=== PATIENT | male | born 1995 | race Caucasian/White ===

== ENCOUNTER 2016-12-22 12:07 | Emergency (ER) | payer OTHER ==
[~2016-12-22] VITALS: Ht 172.7 cm; Wt 68.5 kg
[2016-12-22 12:19] VITALS: Ht 172.7 cm; Wt 68.5 kg
[2016-12-22 14:00] LABS: ADD UMIC NO; UR BILIRUBIN (Dip) NEGATIVE (NEGATIVE); UR BLOOD (Dip) NEGATIVE (NEGATIVE); UR CLARITY CLEAR (CLEAR); UR COLOR YELLOW (YELLOW); UR GLUCOSE (Dip) NEGATIVE (NEGATIVE); UR KETONES (Dip) NEGATIVE (NEGATIVE); UR LEUKOCYTE ESTERASE (Dip) NEGATIVE (NEGATIVE); UR NITRITE (Dip) NEGATIVE (NEGATIVE); UR TOTAL PROTEIN (Dip) NEGATIVE (NEGATIVE); UR UROBILINOGEN (Dip) 0.2 E.U./dL (0.1-1.0)
[2016-12-22 14:21] LABS: ADD SCAN DIFF NO
[2016-12-22 14:27] LABS: BASOPHILS % 0.5 % (0.0-2.0); EOSINOPHILS # 0.1 10^3/ul (0.0-0.5); EOSINOPHILS % 2.1 % (0.0-7.0); HEMATOCRIT 44.9 % (42.0-52.0); HEMOGLOBIN 15.5 g/dl (14.0-18.0); LYMPHOCYTES # 1.5 10^3/ul (0.8-2.9); MEAN CORPUSCULAR HEMOGLOBIN 31.1 pg (29.0-33.0); MEAN CORPUSCULAR HGB CONC 34.5 g/dl (32.0-37.0); MEAN CORPUSCULAR VOLUME 90.2 fl (72.0-104.0); MEAN PLATELET VOLUME 9.5 fl (7.4-10.4); MONOCYTE # 0.5 10^3/ul (0.3-0.9); MONOCYTES % 7.1 % (0.0-13.0); NEUTROPHIL # 4.5 10^3/ul (1.6-7.5); NEUTROPHILS % 68.1 % (30.0-74.0); PLATELET COUNT 276 10^3/UL (140-415); RED BLOOD COUNT 4.98 10^6/ul (4.70-6.10); RED CELL DISTRIBUTION WIDTH 12.6 % (11.5-14.5); WHITE BLOOD COUNT 6.6 10^3/ul (4.8-10.8)
[2016-12-22 14:44] LABS: ALBUMIN 5.4 g/dl (3.3-4.9); ALBUMIN/GLOBULIN RATIO 2.07; BILIRUBIN,INDIRECT 0.6 mg/dl (0-1.1); BILIRUBIN,TOTAL 0.6 mg/dl (0.2-1.3); CALCIUM 9.9 mg/dl (8.4-10.2); CREATININE 1.07 mg/dl (0.61-1.24); POTASSIUM 4.3 mmol/L (3.5-5.1)
--- NOTE | 2016-12-22 15:47 | RADRPT ---
PROCEDURE: CT Abdomen and Pelvis without contrast. CLINICAL INDICATION: Right lower quadrant and groin pain TECHNIQUE: CT scan of the abdomen and pelvis without contrast was performed on a multidetector hig h-resolution CT scanner. The patient was scanned without intravenous contrast. Coronal and sagittal reformatted images were obtained from the axial source images. Images were reviewed on a high-resol [employer] PACS workstation. The total exam CTDI equals 7.31 mGy and the total exam DLP equals 396.02 mGy -cm. One or more of the following dose reduction techniques were used: Automated exposure control. Adjustment of the mA and/or kV according to patient size. Use of iterative reconstruction technique. COMPARISON: None FINDINGS: CT abdomen: The lung bases are clear. The heart size is normal, without pericardial thickening or effusion. Th e liver is normal in size and density without focal mass or intrahepatic biliary dilatation. The sp tammy is normal in size and homogeneous in density. The stomach is partially collapsed, but is gross ly unremarkable. The pancreas as visualized is normal. The gallbladder is unremarkable. There is n o evidence for biliary dilatation. The adrenal glands are symmetric and normal. The kidneys are sy mmetrically unremarkable as well. No renal calculus or obstructive uropathy or mass lesion is seen. The aorta is of normal caliber. There is no retroperitoneal lymphadenopathy. The mario hepatis kaya on is clear. The bowel and mesentery, as visualized, are equally unremarkable. CT pelvis: The small bowel loops situated within the pelvis are unremarkable. There is a normal appendix. The pelvic organs are normal. The pelvic sidewalls and inguinal regions are clear. The sigmoid colon and rectum are unremarkable. No mass, lymphadenopathy, or free fluid is seen. No acute inflammatio n is seen. No osteolytic or osteoblastic lesion is detected. IMPRESSION: 1. No mass, lymphadenopathy, or focal acute inflammatory process is identified. 2. Normal appendix. 3. No urolithiasis. No hydronephrosis. 4. No inguinal hernia. RPTAT: BB .Rosette Urbina MD, MD Date Time Electronically viewed and signed by .Rosette Urbina MD, on 12/22/2016 15:47 .O/
--- NOTE | 2016-12-22 17:00 | RADRPT ---
PROCEDURE: US Scrotum. CLINICAL INDICATION: Scrotal pain. TECHNIQUE: Multiple sonographic images of the scrotal region were obtained utilizing a linear arra y transducer with grayscale and color-flow and a Doppler imaging. The images were reviewed on a high -resolution PACS workstation. COMPARISON: No. FINDINGS: The right testicle is well visualized and has a normal echotexture. No focal areas of abnormal echog enicity are visualized. The right testicle measures measures 4.4 x 2.4 x 3.3 cm. There is normal col or-flow. The right epididymis is visualized and unremarkable in appearance. There is normal color-fl ow. The left testicle is well visualized and has a normal echotexture. No focal areas abnormal echogenic ity are visualized. The left testicle as normal parenchyma and measures 3.6 x 1.7 x 3.1 cm. There is normal color-flow. The left epididymis is visualized and is unremarkable in appearance. There is no rmal color-flow. The scrotal wall is unremarkable. There is no evidence of a hydrocele or varicocele. No swelling o r edema is seen. No other incidental abnormality is identified. IMPRESSION: 1. Normal testicular sonogram. Physician Gary Date Time Electronically viewed and signed by Physician Gary on 12/22/2016 17:00 ALLYSON/
[2016-12-22] MEDS ORDERED: ACET500C5 PO (17:12)
--- NOTE | 2016-12-22 17:36 | ERD ---
ER Documentation Chief Complaint Date/Time DATE: 12/22/16 TIME: 17:33 Chief Complaint right lower abdominal pain this morning HPI 21-year-old's male patient with no significant past medical history presents to the ED complaining of right lower quadrant abdominal pain that started intermittently in the last few months and right testicular pain that started this morning. Describes the pain as sharp and rates it a 8 out of 10. Reports that the pain does not radiate and is localized. States that the scrotal pain and abdominal pain is separate. Denies any nausea, vomiting, diarrhea. Reports that he has normal daily bowel movements. Denies any chest pain, wheezing, shortness of breath. ROS All systems reviewed and are negative except as per history of present illness. Medications Home Meds Active Scripts Acetaminophen* (Tylophen*) 500 Mg Capsule, 1 CAP PO Q6H Y for PAIN AND OR ELEVATED TEMP, #20 CAP Prov:SIN LEDESMA PA-C 12/22/16 Allergies Allergies: Coded Allergies: No Known Allergy (Unverified , 12/22/16) PMhx/Soc Medical and Surgical Hx: pt denies Medical Hx, pt denies Surgical Hx Hx Alcohol Use: No Hx Substance Use: No Hx Tobacco Use: No Smoking Status: Never smoker Physical Exam Vitals Vital Signs Date Time Temp Pulse Resp B/P Pulse Ox O2 Delivery O2 Flow Rate FiO2 12/22/16 12:19 98.3 70 18 131/58 97 Physical Exam Const: [id number], well-nourished. In no acute distress. Head: Atraumatic, normocephalic Eyes: Normal Conjunctiva without injection. No purulent discharge. ENT: Normal external ear, nose. Moist oropharynx without tonsillar exudates. Non -erythematous pharynx. Uvula midline. No drooling. No trismus. Neck: No cervical midline tenderness. Full range of motion. No meningismus. No cervical lymphadenopathy. No JVD. Resp: Clear to auscultation bilaterally. No wheezing, rhonchi, rales, or crackles. No accessory muscle use. No retractions. Cardio: Regular rate and rhythm. No murmurs, rubs or gallops. Abd: Soft, right lower quadrant tenderness, non distended. Normal bowel sounds. No palpable masses. No rebound tenderness. No guarding. Negative McBurney's point. Negative psoas sign. Negative obturator sign. Skin: No petechiae or rashes Back: No midline tenderness. No CVA tenderness. Ext: No cyanosis, or edema. Neur: Awake and alert. Normal gait. Normal coordination. Psych: Normal Mood and Affect Result Diagram: 12/22/16 1415 12/22/16 1415 Results 24 hrs Laboratory Tests Test 12/22/16 13:44 12/22/16 14:15 Urine Color YELLOW Urine Clarity CLEAR Urine pH 6.5 Urine Specific [place] 1.020 Urine Ketones NEGATIVE Urine Nitrite NEGATIVE Urine Bilirubin NEGATIVE Urine Urobilinogen 0.2 E.U./dL Urine Leukocyte Esterase NEGATIVE Urine Hemoglobin NEGATIVE Urine Glucose NEGATIVE% Urine Total Protein NEGATIVE White Blood Count 6.610^3/ul Red Blood Count 4.9810^6/ul Hemoglobin 15.5g/dl Hematocrit 44.9% Mean Corpuscular Volume 90.2fl Mean Corpuscular Hemoglobin 31.1pg Mean Corpuscular Hemoglobin Concent 34.5g/dl Red Cell Distribution Width 12.6% Platelet Count 97583^3/UL Mean Platelet Volume 9.5fl Neutrophils % 68.1% Lymphocytes % 22.0% Monocytes % 7.1% Eosinophils % 2.1% Basophils % 0.5% Nucleated Red Blood Cells % 0.0/100WBC Neutrophils # 4.510^3/ul Lymphocytes # 1.510^3/ul Monocytes # 0.510^3/ul Eosinophils # 0.110^3/ul Basophils # 0.010^3/ul Nucleated Red Blood Cells # 0.010^3/ul Sodium Level 141mmol/L Potassium Level 4.3mmol/L Chloride Level 104mmol/L Carbon Dioxide Level 27mmol/L Anion Gap 14 Blood Urea Nitrogen 18mg/dl Creatinine 1.07mg/dl Glucose Level 92mg/dl Calcium Level 9.9mg/dl Total Bilirubin 0.6mg/dl Direct Bilirubin 0.00mg/dl Indirect Bilirubin 0.6mg/dl Aspartate Amino Transf (AST/SGOT) 25IU/L Alanine Aminotransferase (ALT/SGPT) 42IU/L Alkaline Phosphatase 44IU/L Total Protein 8.0g/dl Albumin 5.4g/dl Globulin 2.60g/dl Albumin/Globulin Ratio 2.07 Lipase 148U/L Procedures/MDM 21-year-old male patient with no significant past medical history presents the ED complaining of right lower quadrant pain and right testicular pain. Patient is afebrile and nontoxic-appearing. Patient has normal vital signs. Patient was further worked up with CBC, CMP, lipase, UA, CT of abdomen and pelvis without contrast, scrotal ultrasound. Patient's pain and symptoms have improved after treatment with 20 mg IV famotidine, 4 mg IV Zofran. CBC: No leukocytosis. No e/o of systemic infection. No e/o anemia. CMP: No e/o severe acidosis, alkalosis, renal failure, diabetic ketoacidosis, liver disease Lipase within normal limits. Urine: No leukocyte esterase, no nitrites, no hematuria. PROCEDURE: CT Abdomen and Pelvis without contrast. CLINICAL INDICATION: Right lower quadrant and groin pain TECHNIQUE: CT scan of the abdomen and pelvis without contrast was performed on a multidetector high-resolution CT scanner. The patient was scanned without intravenous contrast. Coronal and sagittal reformatted images were obtained from the axial source images. Images were reviewed on a high-resolution PACS workstation. The total exam CTDI equals 7.31 mGy and the total exam DLP equals 396.02 mGy-cm. One or more of the following dose reduction techniques were used: Automated exposure control. Adjustment of the mA and/or kV according to patient size. Use of iterative reconstruction technique. COMPARISON: None FINDINGS: CT abdomen: The lung bases are clear. The heart size is normal, without pericardial thickening or effusion. The liver is normal in size and density without focal mass or intrahepatic biliary dilatation. The spleen is normal in size and homogeneous in density. The stomach is partially collapsed, but is grossly unremarkable. The pancreas as visualized is normal. The gallbladder is unremarkable. There is no evidence for biliary dilatation. The adrenal glands are symmetric and normal. The kidneys are symmetrically unremarkable as well. No renal calculus or obstructive uropathy or mass lesion is seen. The aorta is of normal caliber. There is no retroperitoneal lymphadenopathy. The mario hepatis region is clear. The bowel and mesentery, as visualized, are equally unremarkable. CT pelvis: The small bowel loops situated within the pelvis are unremarkable. There is a normal appendix. The pelvic organs are normal. The pelvic sidewalls and inguinal regions are clear. The sigmoid colon and rectum are unremarkable. No mass, lymphadenopathy, or free fluid is seen. No acute inflammation is seen. No osteolytic or osteoblastic lesion is detected. IMPRESSION: 1. No mass, lymphadenopathy, or focal acute inflammatory process is identified. 2. Normal appendix. 3. No urolithiasis. No hydronephrosis. 4. No inguinal hernia. PROCEDURE: US Scrotum. CLINICAL INDICATION: Scrotal pain. TECHNIQUE: Multiple sonographic images of the scrotal region were obtained utilizing a linear array transducer with grayscale and color-flow and a Doppler imaging. The images were reviewed on a high-resolution PACS workstation. COMPARISON: No. FINDINGS: The right testicle is well visualized and has a normal echotexture. No focal areas of abnormal echogenicity are visualized. The right testicle measures measures 4.4 x 2.4 x 3.3 cm. There is normal color-flow. The right epididymis is visualized and unremarkable in appearance. There is normal color-flow. The left testicle is well visualized and has a normal echotexture. No focal areas abnormal echogenicity are visualized. The left testicle as normal parenchyma and measures 3.6 x 1.7 x 3.1 cm. There is normal color-flow. The left epididymis is visualized and is unremarkable in appearance. There is normal color-flow. The scrotal wall is unremarkable. There is no evidence of a hydrocele or varicocele. No swelling or edema is seen. No other incidental abnormality is identified. IMPRESSION: 1. Normal testicular sonogram. Low suspicion for testicular torsion, gastritis, GERD, peptic ulcer disease, cholecystitis, choledocholithiasis, cholangitis, pancreatitis, appendicitis, bowel obstruction, ileus, volvulus, nephrolithiasis, pyelonephritis, hepatitis, perforated viscus, diverticulitis, abdominal hernia, acute abdomen, mesenteric ischemia or other emergent conditions. Discharge medications: Tylenol Follow up with primary care physician in 1-2 days for referral to tube builder. Instructed patient to return to the ED sooner for any worsening symptoms. Patient's questions were answered. Patient understood and agreed with discharge plan. Patient discharged stable. Departure Diagnosis: Primary Impression: Abdominal pain Abdominal location: right lower quadrant Qualified Code: R10.31 - Right lower quadrant abdominal pain Additional Impression: Scrotal pain Condition: Stable Patient Instructions: Abdominal Pain Referrals: [facility] YOU HAVE RECEIVED A MEDICAL SCREENING EXAM AND THE RESULTS INDICATE THAT YOU DO NOT HAVE A CONDITION THAT REQUIRES URGENT TREATMENT IN THE EMERGENCY DEPARTMENT. FURTHER EVALUATION AND TREATMENT OF YOUR CONDITION CAN WAIT UNTIL YOU ARE SEEN IN YOUR DOCTORS OFFICE WITHIN THE NEXT 1-2 DAYS. IT IS YOUR RESPONSIBILITY TO MAKE AN APPOINTMENT FOR FOLOW-UP CARE. IF YOU HAVE A PRIMARY DOCTOR --you should call your primary doctor and schedule an appointment IF YOU DO NOT HAVE A PRIMARY DOCTOR YOU CAN CALL OUR PHYSICIAN REFERRAL HOTLINE AT IF YOU CAN NOT AFFORD TO SEE A PHYSICIAN YOU CAN CHOSE FROM THE FOLLOWING [facility] [address] [facility] [address] [facility] [address] [facility] [address] [place] [address] [facility]. [facility] [address] [facility]. [facility] YOU HAVE RECEIVED A MEDICAL SCREENING EXAM AND THE RESULTS INDICATE THAT YOU DO NOT HAVE A CONDITION THAT REQUIRES URGENT TREATMENT IN THE EMERGENCY DEPARTMENT. FURTHER EVALUATION AND TREATMENT OF YOUR CONDITION CAN WAIT UNTIL YOU ARE SEEN IN YOUR DOCTORS OFFICE WITHIN THE NEXT 1-2 DAYS. IT IS YOUR RESPONSIBILITY TO MAKE AN APPOINTMENT FOR FOLOW-UP CARE. IF YOU HAVE A PRIMARY DOCTOR --you should call your primary doctor and schedule and appointment IF YOU DO NOT HAVE A PRIMARY DOCTOR YOU CAN CALL OUR PHYSICIAN REFERRAL HOTLINE AT . IF YOU CAN NOT AFFORD TO SEE A PHYSICIAN YOU CAN CHOSE FROM THE FOLLOWING [facility]: [facility] [address] [place] [address] [facility] [address] [place] [address] [facility] [address] [place] [address] [facility] URGENT C[facility]/SPECIALTIES Additional Instructions: Call your primary care doctor TOMORROW for an appointment during the next 1-2 days.See the doctor sooner or return here if your condition worsens before your appointment time. SIN LEDESMA PA-C Dec 22, 2016 17:36
== END 2016-12-22 17:25 | disposition home or self-care (01) ==
LOC: FTE 12:07
DX: R10.31 Right lower quadrant pain (principal); N50.82 Scrotal pain
CPT/HCPCS: 36415; 74176; 76870; 80053; 81003; 83690; 85025

== ENCOUNTER 2017-12-16 22:46 | Emergency (ER) | END 2017-12-17 05:15 | disposition home or self-care (01) ==

== ENCOUNTER 2018-04-13 09:04 | Emergency (ER) | END 2018-04-13 11:48 | disposition home or self-care (01) ==

== ENCOUNTER 2018-12-14 09:44 | Emergency (ER) | payer OTHER ==
[~2018-12-14] VITALS: Ht 180.3 cm; Wt 74.7 kg
[~2018-12-14 09:44] MED LIST: ACET500C5 PO; OMEP20CA16 PO; ONDA4TAB14 PO; RANI150T35 PO; TRAM50TA2 PO
[2018-12-14 09:51] VITALS: Ht 180.3 cm; Wt 74.7 kg
[2018-12-14] MEDS ORDERED: DIPHTH/TET/ACEL PERTUSS (ADULT) 0.5 ML VIAL IM* ONE (10:30)
[2018-12-14] MEDS ORDERED: LIDOCAINE 1% (MPF) 5 ML VIAL INJ ONE (10:30)
[2018-12-14] MEDS ORDERED: CEPH-443 PO (10:49)
[2018-12-14 11:52] VITALS: BP 148/78; PULSE 72; RESP 18
--- NOTE | 2018-12-14 12:53 | ERD ---
ER Documentation Chief Complaint Chief Complaint laceration w/knife, bleeding control pressure dressing in place HPI 23-year-old male presenting with laceration to his left hand. Patient with cutting wood with a knife and it slipped and sliced his hand. Patient denies any numbness or tingling in his has normal range of motion of all his digits. He does not recall his last tetanus shot. Patient is right-hand dominant. Denies other medical problems. NKDA. Surgical history denies. Social history denies ROS All systems reviewed and are negative except as per history of present illness. Medications Home Meds Active Scripts Cephalexin* (Keflex*) 500 Mg Capsule, 500 MG PO QID for 7 Days, CAP Prov:LESLYE ACKERMAN PA-C 12/14/18 Ondansetron (Ondansetron Odt) 4 Mg Tab.rapdis, 4 MG PO Q6H PRN for NAUSEA AND/OR VOMITING, #10 TAB Prov:LESLYE ACKERMAN PA-C 04/13/18 Acetaminophen* (Tylophen*) 500 Mg Capsule, 1 CAP PO Q6H PRN for PAIN AND OR ELEVATED TEMP, #20 CAP Prov:LESLYE ACKERMAN PA-C 04/13/18 Tramadol HCl (Tramadol HCl) 50 Mg Tablet, 50 MG PO Q6 PRN for SEVERE PAIN LEVEL 7-10, #20 TAB Prov:GUERDA URBINA NP 12/17/17 Acetaminophen* (Tylophen*) 500 Mg Capsule, 1 CAP PO Q6H PRN for PAIN AND OR ELEVATED TEMP, #20 CAP Prov:GUERDA URBINA NP 12/17/17 Omeprazole* (Omeprazole*) 20 Mg Capsule.dr, 20 MG PO DAILY, #30 Prov:JOSELUIS FRANCO PA-C 03/02/17 Ranitidine Hcl* (Zantac*) 150 Mg Tablet, 150 MG PO BID PRN for EPIGASTRIC PAIN, #30 TAB Prov:JOSELUIS FRANCO PA-C 03/02/17 Acetaminophen* (Tylophen*) 500 Mg Capsule, 1 CAP PO Q6H PRN for PAIN AND OR ELEVATED TEMP, #20 CAP Prov:SIN LEDESMA PA-C 12/22/16 Allergies Allergies: Coded Allergies: No Known Allergy (Unverified , 12/22/16) PMhx/Soc History of Surgery: No Anesthesia Reaction: No Hx Neurological Disorder: No Hx Respiratory Disorders: No Hx Cardiac Disorders: No Hx Psychiatric Problems: No Hx Miscellaneous Medical Probl: No Hx Alcohol Use: No Hx Substance Use: No Hx Tobacco Use: No FmHx Family History: No diabetes, No coronary disease, No other Physical Exam Vitals Vital Signs Date Temp Pulse Resp B/P (MAP) Pulse Ox O2 O2 Flow FiO2 Time Delivery Rate 12/14/18 97.9 72 18 148/78 97 Room Air 11:52 (101) 12/14/18 97.9 71 18 141/78 97 09:51 (99) Physical Exam GENERAL: The patient is well-appearing, well-nourished, in no acute distress CHEST: Clear to auscultation bilaterally. There are no rales, wheezes or rhonchi. HEART: Regular rate and rhythm. No murmurs, clicks, rubs or gallops. EXTREMITIES: Equal pulses bilaterally. There is no peripheral clubbing, cyanosis or edema. No focal swelling or erythema. Full range of motion. Grossly neurovascularly intact. NEUROLOGIC: Alert and oriented. Cranial nerves II through XII intact. Motor strength in all 4 extremities with 5 out of 5 strength. Sensation grossly intact. Normal speech and gait. SKIN: 3cm Flap laceration noted to the left palm. 1 cm and noted to the distal left index finger. Results 24 hrs Current Medications Medications Dose Sig/Esme Start Time Status Last (Trade) Ordered Route PRN Stop Time Admin Dose Reason Admin Lidocaine 5 ml ONCE ONCE 12/14/18 DC (Xylocaine INJ 10:30 12/14/18 1% (Mpf)) 10:31 Diphtheria/ 0.5 ml ONCE ONCE 12/14/18 DC 12/14/18 Tetanus/Acell IM* 10:30 12/14/18 10:19 Pertussis 10:31 (Adacel) Procedures/MDM ER course: Tetanus shot given in ED. Laceration Repair by me: Anesthesia: 1% lidocaine locally Location: Left hand Tendon/Joint/Nerves: No injury Foreign body: None detected after copious irrigation and exploration Technique: Eleven 4-0 nylon simple Interrupted Sutures and three 4-0 nylon simple interrupted sutures placed Complexity: No subcutaneous sutures/mucosal repair/edge excision Post Closure Length: 3 cm and 1 cm Patient's bleeding was easily controlled in the department and there is no indication of anemia. No evidence of compartment syndrome, neurologic injury, vascular injury, open joint, tendon laceration, or foreign body. Patient is appropriate for outpatient follow up. 48 hour wound check. Scar minimization instructions given. MDM: 23-year-old male presenting with laceration to left hand. Patient was placed on antibiotics given this is a large wound and a unclean environment. I have low suspicion for tendon or ligament rupture. I have low suspicion for neuro deficit. She is discharged with strict ER precautions and told to follow- up with primary care within 1 to 2 days for close evaluation. Patient is told symptoms change or worsen to return immediately to the ER. All questions answered at discharge Departure Diagnosis: Primary Impression: Laceration Condition: Stable Patient Instructions: Laceration, Hand Referrals: [facility] (PCP) Additional Instructions: FOLLOW UP WITH YOUR PRIMARY CARE PHYSICIAN TOMORROW.Return to this facility if you are not improving as expected. LESLYE ACKERMAN PA-C Dec 14, 2018 12:53
== END 2018-12-14 11:35 | disposition home or self-care (01) ==
LOC: FTE 09:44
DX: S61.412A Laceration without foreign body of left hand, initial encounter (principal); S61.211A Laceration without foreign body of left index finger without damage to nail, initial encounter; W26.0XXA Contact with knife, initial encounter; Y92.9 Unspecified place or not applicable; Z23 Encounter for immunization
CPT/HCPCS: 12002; 90471; 90715; Z7502; Z7610

== ENCOUNTER 2018-12-16 11:53 | Emergency (ER) | payer OTHER ==
[~2018-12-16] VITALS: Ht 167.6 cm; Wt 72.6 kg
[~2018-12-16 11:53] MED LIST changes: +CEPH-443 PO
[2018-12-16 12:02] VITALS: BP 120/63; PULSE 71; RESP 16; Ht 167.6 cm; Wt 72.6 kg
[2018-12-16] MEDS ORDERED: BACITRACIN 0.9 GM OINT TOP ONE (12:30)
--- NOTE | 2018-12-16 12:45 | ERD ---
ER Documentation Chief Complaint Chief Complaint pt is here for left hand wound check HPI 23-year-old male presents for wound check follow-up. Patient was here 2 days ago and received stitches to the palmar aspect of his left hand. He was put on Keflex at that time. Patient states that he has been taking the antibiotics. He denies any numbness, bleeding, swelling, pain, fevers. ROS All systems reviewed and are negative except as per history of present illness. Medications Home Meds Active Scripts Cephalexin* (Keflex*) 500 Mg Capsule, 500 MG PO QID for 7 Days, CAP Prov:LESLYE ACKERMAN PA-C 12/14/18 Ondansetron (Ondansetron Odt) 4 Mg Tab.rapdis, 4 MG PO Q6H PRN for NAUSEA AND/OR VOMITING, #10 TAB Prov:LESLYE ACKERMAN PA-C 04/13/18 Acetaminophen* (Tylophen*) 500 Mg Capsule, 1 CAP PO Q6H PRN for PAIN AND OR ELEVATED TEMP, #20 CAP Prov:LESLYE ACKERMAN PA-C 04/13/18 Tramadol HCl (Tramadol HCl) 50 Mg Tablet, 50 MG PO Q6 PRN for SEVERE PAIN LEVEL 7-10, #20 TAB Prov:GUERDA URBINA NP 12/17/17 Acetaminophen* (Tylophen*) 500 Mg Capsule, 1 CAP PO Q6H PRN for PAIN AND OR ELEVATED TEMP, #20 CAP Prov:GUERDA URBINA NP 12/17/17 Omeprazole* (Omeprazole*) 20 Mg Capsule.dr, 20 MG PO DAILY, #30 Prov:JOSELUIS FRANCO PA-C 03/02/17 Ranitidine Hcl* (Zantac*) 150 Mg Tablet, 150 MG PO BID PRN for EPIGASTRIC PAIN, #30 TAB Prov:JOSELUIS FRANCO PA-C 03/02/17 Acetaminophen* (Tylophen*) 500 Mg Capsule, 1 CAP PO Q6H PRN for PAIN AND OR ELEVATED TEMP, #20 CAP Prov:SIN LEDESMA PA-C 12/22/16 Allergies Allergies: Coded Allergies: No Known Allergy (Unverified , 12/22/16) PMhx/Soc Medical and Surgical Hx: pt denies Medical Hx, pt denies Surgical Hx History of Surgery: No Anesthesia Reaction: No Hx Neurological Disorder: No Hx Respiratory Disorders: No Hx Cardiac Disorders: No Hx Psychiatric Problems: No Hx Miscellaneous Medical Probl: No Hx Alcohol Use: Yes (social) Hx Substance Use: No Hx Tobacco Use: No Smoking Status: Never smoker FmHx Family History: No diabetes, No coronary disease, No other Physical Exam Vitals Vital Signs Date Temp Pulse Resp B/P (MAP) Pulse Ox O2 O2 Flow FiO2 Time Delivery Rate 12/16/18 98.0 71 16 120/63 96 12:02 (82) Physical Exam Const: No acute distress Head: Atraumatic Eyes: Normal Conjunctiva ENT: Normal External Ears, Nose and Mouth. Neck: Full range of motion. No meningismus. Resp: Clear to auscultation bilaterally Cardio: Regular rate and rhythm, no murmurs Abd: Soft, non tender, non distended. Normal bowel sounds Skin: Suture laceration noted to the palmar aspect of left hand. There is no dehiscence. Such as are intact. There is no erythema, edema, numbness or tingling. Hand is full range of motion. No evidence of infection. Back: No midline or flank tenderness Ext: No cyanosis, or edema Neur: Awake and alert Psych: Normal Mood and Affect Results 24 hrs Current Medications Medications Dose Sig/Esme Start Time Status Last (Trade) Ordered Route PRN Stop Time Admin Dose Reason Admin Bacitracin 1 applic ONCE ONCE 12/16/18 DC 12/16/18 (Bacitracin TOP 12:30 12/16/18 12:37 Oint (Ud)) 12:31 Procedures/MDM MDM: No signs of infection or dehiscence. Patient is neurovascularly intact. Wound appears to be healing appropriately. I will suspicion for acute space infection, cellulitis, or any other emergent condition. Patient advised to follow-up in 1 week for suture removal. Patient advised to continue taking Keflex and to change dressings every day. In addition patient given patient's for bacitracin and told to apply twice daily to prevent infection. Patient discharged with strict ER precautions. Patient advised to follow up with PMD. All questions answered at discharge. Departure Diagnosis: Primary Impression: Encounter for wound re-check Condition: Stable SUNNY PERRY Dec 16, 2018 12:45
[2018-12-16] MEDS ORDERED: BACITUD TOP (13:22)
== END 2018-12-16 13:34 | disposition home or self-care (01) ==
LOC: FTE 11:53
DX: Z48.01 Encounter for change or removal of surgical wound dressing (principal)
CPT/HCPCS: Z7502; Z7610; 99281

== ENCOUNTER 2018-12-27 11:51 | Emergency (ER) | payer OTHER ==
[~2018-12-27] VITALS: Ht 167.6 cm; Wt 75.0 kg
[~2018-12-27 11:51] MED LIST changes: +BACITUD TOP
[2018-12-27 12:04] VITALS: BP 123/60; PULSE 82; RESP 18; Ht 167.6 cm; Wt 75.0 kg
--- NOTE | 2018-12-27 12:24 | ERD ---
ER Documentation Chief Complaint Chief Complaint suture removal fr left thumb >10 days old HPI 23-year-old male presenting for suture removal of his left hand. Patient states they were placed 2 weeks ago. He is right-hand dominant. He has no other medical problems. NKDA. Surgical history denies. Social history denies ROS All systems reviewed and are negative except as per history of present illness. Medications Home Meds Active Scripts Bacitracin* (Bacitracin Oint (UD)*) 1 Applic Oint, 1 APPLIC TOP BID, #1 TUBE APPLY TO Prov:SUNNY PERRY 12/16/18 Cephalexin* (Keflex*) 500 Mg Capsule, 500 MG PO QID for 7 Days, CAP Prov:LESLYE ACKERMAN PA-C 12/14/18 Ondansetron (Ondansetron Odt) 4 Mg Tab.rapdis, 4 MG PO Q6H PRN for NAUSEA AND/OR VOMITING, #10 TAB Prov:LESLYE ACKERMAN PA-C 04/13/18 Acetaminophen* (Tylophen*) 500 Mg Capsule, 1 CAP PO Q6H PRN for PAIN AND OR ELEVATED TEMP, #20 CAP Prov:LESLYE ACKERMAN PA-C 04/13/18 Tramadol HCl (Tramadol HCl) 50 Mg Tablet, 50 MG PO Q6 PRN for SEVERE PAIN LEVEL 7-10, #20 TAB Prov:GUERDA URBINA NP 12/17/17 Acetaminophen* (Tylophen*) 500 Mg Capsule, 1 CAP PO Q6H PRN for PAIN AND OR ELEVATED TEMP, #20 CAP Prov:GUERDA URBINA NP 12/17/17 Omeprazole* (Omeprazole*) 20 Mg Capsule.dr, 20 MG PO DAILY, #30 Prov:JOSELUIS FRANCO PA-C 03/02/17 Ranitidine Hcl* (Zantac*) 150 Mg Tablet, 150 MG PO BID PRN for EPIGASTRIC PAIN, #30 TAB Prov:JOSELUIS FRANCO PA-C 03/02/17 Acetaminophen* (Tylophen*) 500 Mg Capsule, 1 CAP PO Q6H PRN for PAIN AND OR ELEVATED TEMP, #20 CAP Prov:SIN LEDESMA PA-C 12/22/16 Allergies Allergies: Coded Allergies: No Known Allergy (Unverified , 12/27/18) PMhx/Soc History of Surgery: No Anesthesia Reaction: No Hx Neurological Disorder: No Hx Respiratory Disorders: No Hx Cardiac Disorders: No Hx Psychiatric Problems: No Hx Miscellaneous Medical Probl: No Hx Alcohol Use: Yes (social) Hx Substance Use: No Hx Tobacco Use: No Smoking Status: Never smoker FmHx Family History: No diabetes, No coronary disease, No other Physical Exam Vitals Vital Signs Date Temp Pulse Resp B/P (MAP) Pulse Ox O2 O2 Flow FiO2 Time Delivery Rate 12/27/18 97.2 82 18 123/60 98 12:04 (81) Physical Exam GENERAL: The patient is well-appearing, well-nourished, in no acute distress CHEST: Clear to auscultation bilaterally. There are no rales, wheezes or rhonchi. HEART: Regular rate and rhythm. No murmurs, clicks, rubs or gallops. EXTREMITIES: Equal pulses bilaterally. There is no peripheral clubbing, cyanosis or edema. No focal swelling or erythema. Full range of motion. Grossly neurovascularly intact. NEUROLOGIC: Alert and oriented. Cranial nerves II through XII intact. Motor strength in all 4 extremities with 5 out of 5 strength. Sensation grossly intact. Normal speech and gait. SKIN: Healed flap laceration noted to the left hand. Procedures/MDM ER course: Sutures removed without complication. MDM: 23-year-old male presenting for suture removal of the left hand. I have low suspicion for tendon or ligament rupture. I have low suspicion for infectious process. Patient's wound is healing appropriately. Patient is told to follow-up with primary care or return if symptoms change or worsen. All questions answered at discharge Departure Diagnosis: Primary Impression: Encounter for removal of sutures Condition: Stable Patient Instructions: Suture Removal, No Complication Referrals: [facility] (PCP) Additional Instructions: FOLLOW UP WITH YOUR PRIMARY CARE PHYSICIAN TOMORROW.Return to this facility if you are not improving as expected. LESLYE ACKERMAN PA-C Dec 27, 2018 12:24
== END 2018-12-27 12:41 | disposition home or self-care (01) ==
LOC: FTE 11:51
DX: Z48.02 Encounter for removal of sutures (principal)
CPT/HCPCS: 99281

== ENCOUNTER 2019-02-15 11:00 | Emergency (ER) | payer OTHER ==
[~2019-02-15] VITALS: Ht 182.9 cm; Wt 76.1 kg
[~2019-02-15 11:00] MED LIST changes: +NAPR-985 PO
[2019-02-15 11:10] VITALS: Ht 182.9 cm; Wt 76.1 kg
[2019-02-15] MEDS ORDERED: ONDANSETRON (ODT) 4 MG TAB ODT STA (11:43)
[2019-02-15] MEDS ORDERED: LIDOCAINE 1% (MPF) 5 ML VIAL INJ ONE (12:00)
[2019-02-15] MEDS ORDERED: HYDROCODONE/APAP (5/325) TAB PO ONE (12:00)
[2019-02-15 13:00] VITALS: BP 121/74; PULSE 61; RESP 18
--- NOTE | 2019-02-15 14:23 | ERD ---
ER Documentation Chief Complaint Chief Complaint chin lac s/p fall at work on a piece of wood HPI 23-year-old male presenting with a laceration on his chin after a fall at work today. She has some jaw pain is unsure if he may have broken or injured the bone of his left lower jaw. He denies any numbness or tingling and denies any loss of consciousness or vomiting. Patient denies other medical problems. Last tetanus shot was a few months ago. NKDA. Surgical history denies. Social history denies ROS All systems reviewed and are negative except as per history of present illness. Medications Home Meds Active Scripts Naproxen* (Naprosyn*) 500 Mg Tablet, 500 MG PO BID PRN for PAIN AND/OR INFLAMMATION, #30 TAB Prov:LESLYE ACKERMAN PA-C 02/15/19 Bacitracin* (Bacitracin Oint (UD)*) 1 Applic Oint, 1 APPLIC TOP BID, #1 TUBE APPLY TO Prov:SUNNY PERRY 12/16/18 Cephalexin* (Keflex*) 500 Mg Capsule, 500 MG PO QID for 7 Days, CAP Prov:LESLYE ACKERMAN PA-C 12/14/18 Ondansetron (Ondansetron Odt) 4 Mg Tab.rapdis, 4 MG PO Q6H PRN for NAUSEA AND/OR VOMITING, #10 TAB Prov:LESLYE ACKERMAN PA-C 04/13/18 Acetaminophen* (Tylophen*) 500 Mg Capsule, 1 CAP PO Q6H PRN for PAIN AND OR ELEVATED TEMP, #20 CAP Prov:LESLYE ACKERMAN PA-C 04/13/18 Tramadol HCl (Tramadol HCl) 50 Mg Tablet, 50 MG PO Q6 PRN for SEVERE PAIN LEVEL 7-10, #20 TAB Prov:GUERDA URBNIA NP 12/17/17 Acetaminophen* (Tylophen*) 500 Mg Capsule, 1 CAP PO Q6H PRN for PAIN AND OR ELEVATED TEMP, #20 CAP Prov:GUERDA URBINA NP 12/17/17 Omeprazole* (Omeprazole*) 20 Mg Capsule., 20 MG PO DAILY, #30 Prov:JOSELUIS FRANCO PA-C 8/21/17 Ranitidine Hcl* (Zantac*) 150 Mg Tablet, 150 MG PO BID PRN for EPIGASTRIC PAIN, #30 TAB Prov:JOSELUIS FRANCO PA-C 03/02/17 Acetaminophen* (Tylophen*) 500 Mg Capsule, 1 CAP PO Q6H PRN for PAIN AND OR ELEVATED TEMP, #20 CAP Prov:SIN LEDESMA PA-C 12/22/16 Allergies Allergies: Coded Allergies: No Known Allergy (Unverified , 12/27/18) PMhx/Soc Medical and Surgical Hx: pt denies Medical Hx, pt denies Surgical Hx History of Surgery: No Anesthesia Reaction: No Hx Neurological Disorder: No Hx Respiratory Disorders: No Hx Cardiac Disorders: No Hx Psychiatric Problems: No Hx Miscellaneous Medical Probl: No Hx Alcohol Use: Yes (social) Hx Substance Use: No Hx Tobacco Use: No Smoking Status: Never smoker FmHx Family History: No diabetes, No coronary disease, No other Physical Exam Vitals Vital Signs Date Temp Pulse Resp B/P (MAP) Pulse Ox O2 O2 Flow FiO2 Time Delivery Rate 02/15/19 98.4 61 18 121/74 98 Room Air 13:00 (90) 02/15/19 98.2 69 18 138/81 98 11:10 (100) Physical Exam GENERAL: The patient is well-appearing, well-nourished, in no acute distress HEENT: Atraumatic. Conjunctivae are pink. Pupils equal, round, and reactive to light. There is no scleral icterus. Tympanic membranes clear bilaterally. Oropharynx clear. NECK: C-spine is soft and supple. There is no meningismus. There is no cervical lymphadenopathy. CHEST: Clear to auscultation bilaterally. There are no rales, wheezes or rhonchi. HEART: Regular rate and rhythm. No murmurs, clicks, rubs or gallops. ABDOMEN:Soft, nontender and nondistended. Good bowel sounds. No rebound or guarding. No gross peritonitis. No gross organomegaly or masses. NEUROLOGIC: Alert and oriented. Cranial nerves II through XII intact. Motor strength in all 4 extremities with 5 out of 5 strength. Sensation grossly intact. SKIN: Flap laceration noted to the left inferior chin with mild bleeding. Results 24 hrs Current Medications Medications Dose Sig/Esme Start Time Status Last (Trade) Ordered Route PRN Stop Time Admin Dose Reason Admin Lidocaine 5 ml ONCE ONCE 02/15/19 DC (Xylocaine INJ 12:00 02/15/19 1% (Mpf)) 12:01 1 tab ONCE ONCE 02/15/19 DC 02/15/19 Acetaminophen PO 12:00 02/15/19 11:47 / 12:01 Hydrocodone Bitart (Letona (5/325)) Ondansetron 4 mg ONCE STAT 02/15/19 DC 02/15/19 HCl (Zofran ODT 11:43 02/15/19 11:47 Odt) 11:44 Procedures/MDM DIAGNOSTIC IMAGING REPORT Patient: YOSHI SCALES : 1995 Age: 23 Sex: M MR #: [id number] DOS: 02/15/19 1128 Ordering MD: VENITA ACKERMAN PA-C Location: [facility] Room/Bed: PROCEDURE: CT face without contrast CLINICAL INDICATION: Laceration, left jaw pain TECHNIQUE: CT of the face without contrast was performed on a multidetector CT scanner, with multiplanar reformats. One or more of the following dose reduction techniques were used: Automated exposure control, adjustment in mA and / or kV according to patient size, use of iterative reconstructive technique. CTDIvol = 29 mGy and DLP = and 637 mGy-cm. DICOM images are available. COMPARISON: None available. FINDINGS: Soft tissue gas, compatible with laceration is identified at the lower left face in the submandibular region with adjacent scattered gas and soft tissue st randing. No fracture is identified. The facial bones appear intact. The temporomandibular joints are intact. The orbits are unremarkable. Posterior ethmoid sinus secretions are seen. IMPRESSION: Lower left facial soft tissue injury, without facial fracture/dislocation identified. Laceration Repair by me: Anesthesia: 1% lidocaine locally Location: Left lower jaw Tendon/Joint/Nerves: No injury Foreign body: None detected after copious irrigation and exploration Technique: 10 prolene Simple Interrupted Sutures Complexity: No subcutaneous sutures/mucosal repair/edge excision Post Closure Length: 2 cm Patient's bleeding was easily controlled in the department and there is no indication of anemia. No evidence of compartment syndrome, neurologic injury, vascular injury, open joint, tendon laceration, or foreign body. Patient is appropriate for outpatient follow up. 48 hour wound check. Scar minimization instructions given. MDM: 23 yr old male complaining of laceration to left chin. I have low jolie picion for intracranial hemorrhage or neuro deficit. I have low suspicion for acute fracture dislocation of the jaw. No dental injury. Patient does not require tetanus shot at this time. Patient is discharged with strict ER precautions and told to follow-up with primary care within 1 to 2 days for close evaluation. All questions answered at discharge Departure Diagnosis: Primary Impression: Laceration Condition: Stable Patient Instructions: Laceration, Face (Suture Or Tape) Referrals: [facility] (PCP) Additional Instructions: FOLLOW UP WITH YOUR PRIMARY CARE PHYSICIAN TOMORROW.Return to this facility if you are not improving as expected. LESLYE ACKERMAN PA-C Feb 15, 2019 14:23
== END 2019-02-15 13:14 | disposition home or self-care (01) ==
LOC: FTE 11:00
DX: S01.81XA Laceration without foreign body of other part of head, initial encounter (principal); W26.8XXA Contact with other sharp object(s), not elsewhere classified, initial encounter; Y92.9 Unspecified place or not applicable
CPT/HCPCS: 12011; 70486; Z7502; Z7610

== ENCOUNTER 2019-03-21 14:55 | Emergency (ER) | payer SELFPAY ==
[~2019-03-21] VITALS: Ht 180.3 cm; Wt 74.0 kg
[2019-03-21 15:03] VITALS: BP 139/67; PULSE 65; RESP 18; Ht 180.3 cm; Wt 74.0 kg
== END 2019-03-21 18:05 | disposition left against medical advice (07) ==
LOC: FTE 14:55
DX: Z53.21 Procedure and treatment not carried out due to patient leaving prior to being seen by health care provider (principal)